=== PATIENT | female | born 1985 | race Caucasian/White ===

== ENCOUNTER 2016-10-30 02:00 | Inpatient (IN) | payer OTHER ==
[2016-10-30] MEDS ORDERED: SODIUM CHLORIDE 0.9% 1,000 ML IV STA (02:18)
[2016-10-30] MEDS ORDERED: PROMETHAZINE INJ 25 MG/ML 1 ML VIAL IM STA ×2 (02:33→03:27)
--- NOTE | 2016-10-30 03:02 | XR ---
EXAM: XR Chest, 1 View CLINICAL HISTORY: Reason: overdose, vomiting TECHNIQUE: Frontal view of the chest. COMPARISON: None FINDINGS: Lungs/pleura: Low lung volumes with bibasilar atelectasis. No focal consolidation. No pleural effusion or pneumothorax. Heart/mediastinum: Normal accounting for low lung volumes. Soft tissues: Unremarkable. Bones: No acute fracture. IMPRESSION: Low lung volumes with bibasilar atelectasis. No acute disease.
[2016-10-30 03:59] LABS: ALT 29 U/L (9-52); AST 29 U/L (14-36); Acetaminophen <10.0 ug/mL; Alcohol <10 mg/dL; Alkaline Phosphatase 86 U/L (38-126); Anion Gap 18 mmol/L; Blood Urea Nitrogen 9 mg/dL (7-17); Calcium 9.7 mg/dL (8.4-10.2); Carbon Dioxide 17 mmol/L (22-30); Chloride 109 mmol/L (98-107); Glucose 91 mg/dL (74-99); Non-African American GFR(MDRD) 58 (>60 ml/min/1.73 sqM); Potassium 3.2 mmol/L (3.5-5.1); Salicylate <1.0 mg/dL; Sodium 144 mmol/L (137-145); Total Bilirubin 0.2 mg/dL (0.2-1.3); Total Protein 7.1 g/dL (6.3-8.2)
[2016-10-30] MEDS ORDERED: SODIUM CHLORIDE 0.9% 2,000 ML IV ONE (04:10)
--- NOTE | 2016-10-30 04:12 | ED ---
Overdose HPI - General Chief Complaint: Overdose Stated Complaint: Overdose Time Seen by Provider: 10/30/16 02:06 Source: EMS Mode of arrival: EMS - History of Present Illness Initial Comments: This patient is a 30-year-old woman brought by EMS to be evaluated for overdose. The patient's family called EMS. She had reportedly taken an overdose with an unknown amount of Cymbalta and an unknown amount of Wellbutrin. The patient reportedly had a seizure at home. The patient was initially responding only yes or no. She did appear postictal and she acknowledged the overdose. The patient's mental status did subsequent only clear. She was denying complaints, other than nausea and she did have some vomiting. His dyspnea, cough, chest pain, abdominal pain, headache. MD Complaint: intentional overdose Onset/Timin -: hour(s) Intent: suicide attempt - Related Data Home Medications Medication Instructions Recorded Confirmed ALPRAZolam [Xanax] 0.25 mg PO TID PRN 10/30/16 10/31/16 DULoxetine HCL [Cymbalta] 60 mg PO DAILY 10/30/16 10/31/16 Dextroamphetamine/Amphetamine 20 mg PO BID 10/30/16 10/31/16 [Adderall] Ergocalciferol [Vitamin D2] 50,000 unit PO MO 10/30/16 10/31/16 buPROPion SR [Wellbutrin SR] 150 mg PO BID 10/30/16 10/31/16 Allergies Allergy/AdvReac Type Severity Reaction Status Date / Time sulfamethoxazole Allergy Intermediate Rash/Hives Verified 10/31/16 18:45 [From Septra] trimethoprim [From Septra] Allergy Intermediate Rash/Hives Verified 10/31/16 18: 45 Review of Systems ROS Statement: Those systems with pertinent positive or pertinent negative responses have been documented in the HPI. ROS Other: All systems not noted in ROS Statement are negative. Limitations: ROS unobtainable due to patients medical condition (Altered mental status) Respiratory: Denies: dyspnea Cardiovascular: Denies: chest pain Gastrointestinal: Reports: vomiting. Denies: abdominal pain Neurological: Denies: headache Past Medical History Additional Past Medical History / Comment(s): chronic ear problems History of Any Multi-Drug Resistant Organisms: None Reported Past Surgical History: Section, Ear Surgery Past Psychological History: No Psychological Hx Reported Smoking Status: Current every day smoker Past Alcohol Use History: None Reported Past Drug Use History: None Reported - Past Family History Father Family Medical History: Diabetes Mellitus, Hypertension Additional Family Medical History / Comment(s): OCD. Mother Additional Family Medical History / Comment(s): Depression. General Exam General appearance: appears intoxicated, obese Head exam: Present: atraumatic, normocephalic Eye exam: Present: normal appearance. Absent: scleral icterus, conjunctival injection ENT exam: Present: normal oropharynx Neck exam: Present: normal inspection, full ROM Respiratory exam: Present: rhonchi. Absent: respiratory distress, wheezes, rales, stridor Cardiovascular Exam: Present: normal rhythm, tachycardia, normal heart sounds. Absent: systolic murmur, diastolic murmur, rubs, gallop GI/Abdominal exam: Present: soft. Absent: distended, tenderness, guarding, rebound, mass Extremities exam: Present: normal inspection, normal capillary refill. Absent: pedal edema, calf tenderness Back exam: Present: normal inspection. Absent: CVA tenderness (R), CVA tenderness (L) Neurological exam: Present: alert, altered, CN II-XII intact. Absent: oriented X3, motor sensory deficit Skin exam: Present: warm, dry, intact, normal color. Absent: rash, cyanosis, diaphoretic, erythema, petechiae, pallor, mottled Course Vital Signs 10/30/16 10/30/16 10/30/16 02:42 03:00 04:17 Temperature 98.2 F Pulse Rate 113 H 108 H 101 H Respiratory 19 18 18 Rate Blood Pressure 127/69 134/58 164/70 O2 Sat by Pulse 98 97 98 Oximetry 10/30/16 07:06 Temperature 98.0 F Pulse Rate 103 H Respiratory 18 Rate Blood Pressure 133/63 O2 Sat by Pulse 98 Oximetry - Reevaluation(s) Reevaluation #1: 10/30/16 04:19 The case has been discussed with poison control. Their recommendations for treatment incorporated. Family did have questions regarding gastric lavage and I explained that given the risks and benefits at this point it does not seem indicated. The patient has had no EKG changes. She is not evidencing mental status change at this point. She did have one seizure but it appears to have been self-limited and she is returned to baseline. At this point the treatment appears to be mainly supportive/observational and patient be admitted to ICU with psychiatry consultation. Medical Decision Making - Medical Decision Making This patient is a 30-year-old woman presenting to the emergency department after she reportedly had taken an overdose of Cymbalta and Wellbutrin, unknown amounts of each. She then was reported to have had a seizure prompting EMS to be called. The patient did admit to attempting self-harm. Case discussed with admitting physician Dr. Adams. Case discussed with consulting physician Dr. Boyd. Case discussed with poison control and their recommendations incorporated. The patient's repeat EKG does not show any length any of the intervals. There is again sinus tachycardia with a rate has improved to 108 bpm. TN interval is 148 ms, QRS duration 72 ms, QT see 469 ms. - Lab Data Result diagrams: 10/30/16 02:54 10/30/16 02:20 Lab Results 10/30/16 10/30/16 10/30/16 Range/Units 02:20 02:20 02:20 WBC (3.8-10.6) k/uL RBC (3.80-5.40) m/uL Hgb (11.4-16.0) gm/dL Hct (34.0-46.0) % MCV (80.0-100.0) fL MCH (25.0-35.0) pg MCHC (31.0-37.0) g/dL RDW (11.5-15.5) % Plt Count (150-450) k/uL Neutrophils % % Lymphocytes % % Monocytes % % Eosinophils % % Basophils % % Neutrophils # (1.3-7.7) k/uL Lymphocytes # (1.0-4.8) k/uL Monocytes # (0-1.0) k/uL Eosinophils # (0-0.7) k/uL Basophils # (0-0.2) k/uL Sodium 144 (137-145) mmol/L Potassium 3.2 L (3.5-5.1) mmol/L Chloride 109 H (98-107) mmol/L Carbon Dioxide 17 L (22-30) mmol/L Anion Gap 18 mmol/L BUN 9 (7-17) mg/dL Creatinine 1.10 H (0.52-1.04) mg/dL Est GFR (MDRD) Af Amer >60 (>60 ml/min/1.73 sqM) Est GFR (MDRD) Non-Af 58 (>60 ml/min/1.73 sqM) Glucose 91 (74-99) mg/dL Plasma Lactic Acid Kevin (0.7-2.0) mmol/L Calcium 9.7 (8.4-10.2) mg/dL Magnesium 2.3 (1.6-2.3) mg/dL Total Bilirubin 0.2 (0.2-1.3) mg/dL AST 29 (14-36) U/L ALT 29 (9-52) U/L Alkaline Phosphatase 86 (38-126) U/L Troponin I <0.012 (0.000-0.034) ng/mL Total Protein 7.1 (6.3-8.2) g/dL Albumin 4.4 (3.5-5.0) g/dL Urine HCG, Qual (Not Detectd) Salicylates <1.0 mg/dL Urine Opiates Screen (NotDetected) Ur Oxycodone Screen (NotDetected) Urine Methadone Screen (NotDetected) Ur Propoxyphene Screen (NotDetected) Acetaminophen <10.0 ug/mL Ur Barbiturates Screen (NotDetected) U Tricyclic Antidepress (NotDetected) Ur Phencyclidine Scrn (NotDetected) Ur Amphetamines Screen (NotDetected) U Methamphetamines Scrn (NotDetected) U Benzodiazepines Scrn (NotDetected) Urine Cocaine Screen (NotDetected) U Marijuana (THC) Screen (NotDetected) Serum Alcohol <10 mg/dL 10/30/16 10/30/16 10/30/16 Range/Units 02:54 02:54 03:13 WBC 22.3 H (3.8-10.6) k/uL RBC 4.61 (3.80-5.40) m/uL Hgb 12.0 (11.4-16.0) gm/dL Hct 37.4 (34.0-46.0) % MCV 81.0 (80.0-100.0) fL MCH 26.1 (25.0-35.0) pg MCHC 32.2 (31.0-37.0) g/dL RDW 14.1 (11.5-15.5) % Plt Count 370 (150-450) k/uL Neutrophils % 89 % Lymphocytes % 6 % Monocytes % 4 % Eosinophils % 1 % Basophils % 0 % Neutrophils # 19.7 H (1.3-7.7) k/uL Lymphocytes # 1.3 (1.0-4.8) k/uL Monocytes # 1.0 (0-1.0) k/uL Eosinophils # 0.1 (0-0.7) k/uL Basophils # 0.1 (0-0.2) k/uL Sodium (137-145) mmol/L Potassium (3.5-5.1) mmol/L Chloride (98-107) mmol/L Carbon Dioxide (22-30) mmol/L Anion Gap mmol/L BUN (7-17) mg/dL Creatinine (0.52-1.04) mg/dL Est GFR (MDRD) Af Amer (>60 ml/min/1.73 sqM) Est GFR (MDRD) Non-Af (>60 ml/min/1.73 sqM) Glucose (74-99) mg/dL Plasma Lactic Acid Kevin 4.4 H* (0.7-2.0) mmol/L Calcium (8.4-10.2) mg/dL Magnesium (1.6-2.3) mg/dL Total Bilirubin (0.2-1.3) mg/dL AST (14-36) U/L ALT (9-52) U/L Alkaline Phosphatase (38-126) U/L Troponin I (0.000-0.034) ng/mL Total Protein (6.3-8.2) g/dL Albumin (3.5-5.0) g/dL Urine HCG, Qual (Not Detectd) Salicylates mg/dL Urine Opiates Screen Not Detected (NotDetected) Ur Oxycodone Screen Not Detected (NotDetected) Urine Methadone Screen Not Detected (NotDetected) Ur Propoxyphene Screen Not Detected (NotDetected) Acetaminophen ug/mL Ur Barbiturates Screen Not Detected (NotDetected) U Tricyclic Antidepress Not Detected (NotDetected) Ur Phencyclidine Scrn Not Detected (NotDetected) Ur Amphetamines Screen Not Detected (NotDetected) U Methamphetamines Scrn Detected H (NotDetected) U Benzodiazepines Scrn Not Detected (NotDetected) Urine Cocaine Screen Not Detected (NotDetected) U Marijuana (THC) Screen Detected H (NotDetected) Serum Alcohol mg/dL 10/30/16 Range/Units 03:13 WBC (3.8-10.6) k/uL RBC (3.80-5.40) m/uL Hgb (11.4-16.0) gm/dL Hct (34.0-46.0) % MCV (80.0-100.0) fL MCH (25.0-35.0) pg MCHC (31.0-37.0) g/dL RDW (11.5-15.5) % Plt Count (150-450) k/uL Neutrophils % % Lymphocytes % % Monocytes % % Eosinophils % % Basophils % % Neutrophils # (1.3-7.7) k/uL Lymphocytes # (1.0-4.8) k/uL Monocytes # (0-1.0) k/uL Eosinophils # (0-0.7) k/uL Basophils # (0-0.2) k/uL Sodium (137-145) mmol/L Potassium (3.5-5.1) mmol/L Chloride (98-107) mmol/L Carbon Dioxide (22-30) mmol/L Anion Gap mmol/L BUN (7-17) mg/dL Creatinine (0.52-1.04) mg/dL Est GFR (MDRD) Af Amer (>60 ml/min/1.73 sqM) Est GFR (MDRD) Non-Af (>60 ml/min/1.73 sqM) Glucose (74-99) mg/dL Plasma Lactic Acid Kevin (0.7-2.0) mmol/L Calcium (8.4-10.2) mg/dL Magnesium (1.6-2.3) mg/dL Total Bilirubin (0.2-1.3) mg/dL AST (14-36) U/L ALT (9-52) U/L Alkaline Phosphatase (38-126) U/L Troponin I (0.000-0.034) ng/mL Total Protein (6.3-8.2) g/dL Albumin (3.5-5.0) g/dL Urine HCG, Qual Not Detected (Not Detectd) Salicylates mg/dL Urine Opiates Screen (NotDetected) Ur Oxycodone Screen (NotDetected) Urine Methadone Screen (NotDetected) Ur Propoxyphene Screen (NotDetected) Acetaminophen ug/mL Ur Barbiturates Screen (NotDetected) U Tricyclic Antidepress (NotDetected) Ur Phencyclidine Scrn (NotDetected) Ur Amphetamines Screen (NotDetected) U Methamphetamines Scrn (NotDetected) U Benzodiazepines Scrn (NotDetected) Urine Cocaine Screen (NotDetected) U Marijuana (THC) Screen (NotDetected) Serum Alcohol mg/dL - EKG Data -: EKG Interpreted by Me EKG shows normal: sinus rhythm, axis (Normal), intervals (Normal), QRS complexes (Normal), ST-T waves (Normal) Rate: tachycardia (Rate 1:30 bpm) Interpretation: other (There are Q waves in V2 consistent with possible septal infarct.) Critical Care Time Critical Care Time: Yes (40 minutes) Disposition Clinical Impression: Overdose Disposition: ADMITTED IP TO THIS [facility] Condition: Serious
[2016-10-30 04:27] LABS: Basophils # (A) 0.1 k/uL (0-0.2); Basophils % (A) 0 %; CH 25.9; CHCM 32.1; Eosinophils # (A) 0.1 k/uL (0-0.7); Eosinophils % (A) 1 %; HCT 37.4 % (34.0-46.0); HDW 2.57; Luc # (Auto) 0.12; Luc % (Auto) 1; Lymphocytes # (A) 1.3 k/uL (1.0-4.8); Lymphocytes % (A) 6 %; MCH 26.1 pg (25.0-35.0); MCHC 32.2 g/dL (31.0-37.0); Mean Platelet Volume 8.6; Monocytes % (A) 4 %; Neutrophils # (A) 19.7 k/uL (1.3-7.7); Neutrophils % (A) 89 %; RBC 4.61 m/uL (3.80-5.40); RDW 14.1 % (11.5-15.5); WBC 22.3 k/uL (3.8-10.6); WBC (Perox) 23.03
[2016-10-30 05:13] VITALS: RESP 18
[2016-10-30] MEDS ORDERED: LORazepam 2 MG/ML SYRINGE IV STA (05:45)
[2016-10-30] MEDS ORDERED: NALOXONE 0.4 MG/ML 1 ML VIAL IV PRN (06:38)
[2016-10-30] MEDS ORDERED: SODIUM CHLORIDE 0.9% 1,000 ML IV SCH (06:45)
[2016-10-30 09:22] VITALS: BMI 40.6
[2016-10-30] MEDS ORDERED: ONDANSETRON 4 MG/2 ML VIAL IVP PRN (09:28)
[2016-10-30] MEDS ORDERED: Potassium Replacement Protocol 1 EACH MISC MISCELLANE PRN (09:28)
[2016-10-30] MEDS: POTASSIUM CHLORIDE ER 20 MEQ TAB.ER PO SCH ×2 (10:43→11:33)
[2016-10-30 11:32] VITALS: BP 110/51; PULSE 86; TEMP 97.2
[2016-10-30] MEDS ORDERED: NICOTINE 21MG/24HR PATCH TRANSDERM SCH (13:30)
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
--- NOTE | 2016-10-30 16:57 | CONS ---
DATE OF CONSULTATION: REASON FOR CONSULTATION: Overdose. This is a 30-year-old female who was brought in by EMS for overdose. It was an intentional overdose as a suicide attempt. She apparently took an unknown amount of Cymbalta and also Wellbutrin. She apparently had a seizure at home. The patient was initially responding only yes or no. She was somewhat postictal when she first arrived in the emergency department. Subsequently, she came around very nicely. She had a couple of EKGs, which did not show any prolongation of the QRS complex or QT prolongation. The patient otherwise is doing reasonably well. She did have some nausea and did have some vomiting. No chest pain or chest discomfort. No fever, no chills. No other complaints for that matter. Overall, the patient seemed to be doing reasonably well. HER ALLERGIES INCLUDE TRIMETHOPRIM AND SULFAMETHOXAZOLE. Her home medications include: 1. Wellbutrin. 2. Vitamin C. 3. Adderall. 4. Cymbalta. 5. Xanax. Her past medical history is apparently positive for depression, anxiety, and attention deficit hyperactivity disorder. She apparently has also had previous , ear surgery, chronic ear problems. SOCIAL HISTORY: Positive for current every day smoker. Denies alcohol use. Denies illicit drug use. She was not able to admit to me whether or not this was her first attempt or she has had multiple previous attempts. The patient is otherwise doing relatively well; feeling well. REVIEW OF SYSTEMS: CONSTITUTIONAL: Negative. NEUROLOGICAL: Negative. HEENT: Negative. CARDIOVASCULAR: Negative. PULMONARY: Negative. GI/: Negative. Rheumatological/immunologic: Negative. ENDOCRINOLOGIC: Negative. The nausea and vomiting that she had initially has passed. She did have a seizure but has not had another one. CURRENT VITAL SIGNS: Temperature 97.2, heart rate 86, respiratory rate 18, blood pressure 110/51, mean 70, room-air saturation 98%. Appears in no acute distress, looks well. Oriented x3. There was a sitter in the room and a family member in the room. HEENT examination is grossly unremarkable. Mucous membranes are moist. Neck is supple. Full range of motion. No adenopathy. Neck veins are flat. Cardiovascular examination reveals regular rhythm and rate. S1, S2 normal. No murmur. No S3, S4. Lungs are clear. Breath sounds equal. ABDOMEN: Soft. Bowel sounds are heard. EXTREMITIES: Intact. No cyanosis, clubbing, or edema. Skin without rash. NEUROLOGICAL: Examination is nonfocal. Lab data is reviewed. White count 22.3, hemoglobin 12, hematocrit 37.4, platelet count 370,000. Sodium 144, potassium 3.2, chloride 109, CO2 of 17, anion gap initially was 18, BUN and creatinine were 9 and 1.10. Initial lactic acid was 4.4. Then it came down to 1.6. Urine hCG negative. Her drug screen was positive for methamphetamines and marijuana. Alcohol less than 10. Tylenol less than 10, salicylates less than one. Troponins normal. A chest x-ray showed some basilar atelectasis without acute disease. ASSESSMENT: 1. Status post drug overdose as a suicide attempt ingesting both Cymbalta and Wellbutrin. 2. History of attention deficit hyperactivity disorder. 3. History of anxiety. 4. History of depression. 5. History of chronic ear problems. PLAN: The patient is doing relatively well. We will probably not see the patient unless if she develops an issue or problem. She seemed to be doing relatively well. Psych is apparently going to see the patient, but has not as yet. No additional recommendations are made. Cardiac situation has been stable. EKG showed no evidence of QRS prolongation.
--- NOTE | 2016-10-30 20:05 | HP ---
CHIEF COMPLAINT: Overdose. HISTORY OF PRESENT ILLNESS: The first known admission for this 30-year-old white female. She is going through a divorce and has had some problems with depression and became depressed and despondent and decided to kill herself. She ingested Wellbutrin and Cymbalta. It was reported that she might have had a seizure at home. She has no history of seizures. She came to emergency room awake and alert and was admitted for observation and suicide precautions. REVIEW OF SYSTEMS: She has had no headaches, neurologic problems, change in vision or hearing, chest pain, cough, hemoptysis, heart disease, hypertension, abdominal pain, nausea, vomiting, hematemesis, melena, hematochezia, jaundice, hematuria, frequency, urgency, arthralgias, diabetes, etc. Past medical history, family history and personal and social histories reveal SHE IS ALLERGIC TO SULFA and she has been on: 1. Vicodin 5 mg once a day p.r.n. 2. Vitamin D. 3. Prilosec. 4. Cymbalta and 5. Xanax. She does smoke. She denies the use of other drugs. PHYSICAL EXAMINATION: VITAL SIGNS: Blood pressure 100/76, pulse of 80, respirations 16. She is afebrile. GENERAL: She appeared to be overweight and in no acute distress. Skin color is normal. Skin is warm and dry. Lymph nodes were not enlarged. Head, ears, eyes, mouth, and throat were normal. Neck veins were not distended. Thyroid is not enlarged. Chest is clear. Cardiac was normal. ABDOMEN: Soft and nontender. Extremities were normal. She was slightly tremulous. She was admitted to the hospital with diagnoses: 1. Overdose of Wellbutrin and Cymbalta. 2. Possible seizure possibly related to Wellbutrin. 3. Major depression. PLAN: 1. Bed rest. 2. IV fluids. 3. Suicide precautions. 4. Psych consult.
--- NOTE | 2016-11-03 07:39 | DS ---
DATE OF ADMISSION: 10/30/2016 DATE OF DISCHARGE: 10/30/2016 CHIEF COMPLAINT: Depression and overdose of Wellbutrin and Cymbalta with possible seizure. History of present illness and physical examination: Details of this lady's history and physical can be found in the initial work-up. LABORATORY STUDIES: While she was in the hospital, she had laboratory studies, the details of which can be found in the laboratory section of her chart. COURSE IN THE HOSPITAL: After admission, she was placed on bed rest, started on intravenous fluids and suicide precautions and seen by Psychiatry. They felt that she was not suicidal and did not need to go to the psych floor. I was not in agreement with this assessment. The patient then decided she wanted to sign herself out AGAINST MEDICAL ADVICE, which she did. FINAL DIAGNOSES: 1. Major depression. 2. Suicide attempt with drug overdose. OPERATIONS: None. CONSULTATION: Psychiatry.
== END 2016-10-30 14:22 | disposition left against medical advice (07) | DRG 918 ==
LOC: EC 02:00 → 6SEL 06:39
PROVIDERS: ADMIT Family Medicine; ATTEND Family Medicine
DX: T43.212A Poisoning by selective serotonin and norepinephrine reuptake inhibitors, intentional self-harm, initial encounter (principal); Z68.41 Body mass index [BMI] 40.0-44.9, adult; G40.89 Other seizures; T43.292A Poisoning by other antidepressants, intentional self-harm, initial encounter; F32.9 Major depressive disorder, single episode, unspecified; E66.9 Obesity, unspecified; F41.9 Anxiety disorder, unspecified; F90.9 Attention-deficit hyperactivity disorder, unspecified type; R11.2 Nausea with vomiting, unspecified; R00.0 Tachycardia, unspecified; F17.200 Nicotine dependence, unspecified, uncomplicated; Z53.21 Procedure and treatment not carried out due to patient leaving prior to being seen by health care provider; Z88.2 Allergy status to sulfonamides; Z62.810 Personal history of physical and sexual abuse in childhood; Z91.410 Personal history of adult physical and sexual abuse; Z86.69 Personal history of other diseases of the nervous system and sense organs; Z81.8 Family history of other mental and behavioral disorders; Z82.49 Family history of ischemic heart disease and other diseases of the circulatory system; Z83.3 Family history of diabetes mellitus; Z91.5 Personal history of self-harm; Z79.891 Long term (current) use of opiate analgesic; Z81.1 Family history of alcohol abuse and dependence; Z79.899 Other long term (current) drug therapy; Z71.3 Dietary counseling and surveillance; Z63.5 Disruption of family by separation and divorce; Y92.9 Unspecified place or not applicable
CPT/HCPCS: 36415; 71010; 80053; 80306; 80320; 81025; 83520; 83605; 83735; 84484; 85025; 93005; 96361; 96374; 99291

== ENCOUNTER 2016-10-31 18:37 | Inpatient (IN) | payer OTHER ==
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
[2016-11-01] MEDS ORDERED: MAG HYDROX/AL HYDROX/SIMETH 30 ML CUP PO PRN (01:57)
[2016-11-01] MEDS ORDERED: MAGNESIUM HYDROXIDE 2,400 MG/10 ML CUP PO PRN (01:57)
[2016-11-01] MEDS ORDERED: ZIPRASIDONE 20 MG VIAL IM PRN (01:57)
[2016-11-01 08:08] LABS: Basophils % (A) 1 %; CH 25.6; CHCM 30.8; Eosinophils # (A) 0.3 k/uL (0-0.7); Eosinophils % (A) 4 %; HCT 35.3 % (34.0-46.0); HDW 2.56; Hypochromasia Moderate; Luc # (Auto) 0.11; Luc % (Auto) 2; Lymphocytes # (A) 1.8 k/uL (1.0-4.8); Lymphocytes % (A) 29 %; MCH 26.1 pg (25.0-35.0); MCHC 31.2 g/dL (31.0-37.0); MCV 83.5 fL (80.0-100.0); Mean Platelet Volume 7.9; Monocytes # (A) 0.3 k/uL (0-1.0); Monocytes % (A) 5 %; Neutrophils # (A) 3.7 k/uL (1.3-7.7); Neutrophils % (A) 59 %; RBC 4.22 m/uL (3.80-5.40); RDW 14.3 % (11.5-15.5); WBC 6.1 k/uL (3.8-10.6); WBC (Perox) 6.43
[2016-11-01 08:34] LABS: ALT 29 U/L (9-52); AST 26 U/L (14-36); Alkaline Phosphatase 68 U/L (38-126); Anion Gap 7 mmol/L; Blood Urea Nitrogen 7 mg/dL (7-17); Carbon Dioxide 27 mmol/L (22-30); Chloride 112 mmol/L (98-107); Glucose 93 mg/dL (74-99); Non-African American GFR(MDRD) >60 (>60 ml/min/1.73 sqM); Potassium 3.8 mmol/L (3.5-5.1); Sodium 146 mmol/L (137-145); Total Bilirubin 0.5 mg/dL (0.2-1.3); Total Protein 6.2 g/dL (6.3-8.2)
[2016-11-01] MEDS ORDERED: DULoxetine HCL 60 MG CAPSULE.DR PO SCH (09:00)
[2016-11-01] MEDS ORDERED: buPROPion SR 150 MG TABLET.ER PO SCH (09:00)
[2016-11-01] MEDS: NICOTINE 21MG/24HR PATCH TRANSDERM SCH (09:23)
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
[2016-11-01] MEDS ORDERED: DULoxetine HCL 30 MG CAPSULE.DR PO SCH (21:00)
[2016-11-01] MEDS ORDERED: LITHIUM CARBONATE 150 MG CAP PO SCH (21:00)
[2016-11-01] MEDS: hydrOXYzine PAMOATE 25 MG CAP PO PRN (21:08)
[2016-11-02] MEDS ORDERED: DULoxetine HCL 30 MG CAPSULE.DR PO SCH (09:00)
--- NOTE | 2016-11-02 09:22 | P.PN ---
Progress Note - Text INTERVERAL HISTORY: 30-year-old female admitted for suicidal ideation. Patient in the midst of a tumultuous separation/divorce from . She had an interaction with him the night of her admission and made statements that she wished she had completed the suicide attempt that she had 2 days previous. Patient reports that she tolerated the initial dose of lithium last night. She has not yet had the reduced dose of Cymbalta today. We discussed cognitive behavioral therapy as a way to practice dealing with her , and the overwhelming emotions that she has with him. Talked about practicing a behavior to help her not go to the point of feeling suicidal or wanting to manipulate him with the suicidal statements. She agreed that she would try to pull an image up of her babies when she is feeling those overwhelming feelings with him. Denies suicidal ideation MENTAL STATUS EXAM:Patient alert and oriented 3, good eye contact, well groomed in hospital street clothing. Speech normal volume, rate and production. Coherent, logical and goal directed thought process. No WENDY, no FOI. [No TB/TW/ TI] Denied auditory and visual hallucinations. Denied paranoid ideation, delusions or IOR. Memory intact Cognition average Mood neutral, affect range decreased intensity, congruent with mood. Denies suicidal ideation, denies homicidal ideation. Insight partial; Judgment grossly intact for treatment purposes Suicde attempt Suicidal ideation Depression, uncpecified Marital conflict PLAN: Continue inpatient psychiatric admission for safety purposes, she has demonstrated impulsivity with the first suicide attempt and the recent threats of getting it. right. Suicide precautions 15 minute checks. Increase lithium 300 mg daily at bedtime Monitor withdrawal from Cymbalta, if no problems will reduce to 15 mg tomorrow Patient has accepted deferral, waiting for her date
[2016-11-02] MEDS: NICOTINE 21MG/24HR PATCH TRANSDERM SCH (09:36)
[2016-11-02] MEDS ORDERED: DULoxetine HCL 30 MG CAPSULE.DR PO STA (09:41)
[2016-11-02] MEDS: LITHIUM CARBONATE 300 MG CAP PO SCH (21:11)
[2016-11-02] MEDS: hydrOXYzine PAMOATE 25 MG CAP PO PRN (21:11)
[2016-11-03 06:52] VITALS: RESP 16
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
[2016-11-03] MEDS ORDERED: DULoxetine HCL 30 MG CAPSULE.DR PO SCH (09:00)
[2016-11-03] MEDS ORDERED: DULoxetine HCL 20 MG CAPSULE.DR PO SCH (09:00)
[2016-11-03] MEDS: NICOTINE 21MG/24HR PATCH TRANSDERM SCH (09:13)
[2016-11-03] MEDS: hydrOXYzine PAMOATE 25 MG CAP PO PRN ×2 (12:54→21:47)
[2016-11-03] MEDS ORDERED: WATER FOR INJECTION, STERILE 0 ML IV ONE (18:33)
[2016-11-03] MEDS: LITHIUM CARBONATE 300 MG CAP PO SCH (21:46)
[2016-11-03] MEDS: ACETAMINOPHEN TAB 325 MG TAB PO PRN (21:47)
[2016-11-04 06:35] VITALS: TEMP 98.1
[2016-11-04] MEDS: NICOTINE 21MG/24HR PATCH TRANSDERM SCH (09:25)
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
[2016-11-04] MEDS: FLUoxetine HCL 20 MG CAP PO SCH (10:15)
[2016-11-04] MEDS: hydrOXYzine PAMOATE 25 MG CAP PO PRN ×2 (10:16→20:09)
[2016-11-04] MEDS: ACETAMINOPHEN TAB 325 MG TAB PO PRN ×2 (12:25→20:08)
[2016-11-04] MEDS: LITHIUM CARBONATE 300 MG CAP PO SCH (20:08)
[2016-11-05 06:39] VITALS: BP 130/70; PULSE 73
[2016-11-05] MEDS: ACETAMINOPHEN TAB 325 MG TAB PO PRN (06:53)
[2016-11-05] MEDS: NICOTINE 21MG/24HR PATCH TRANSDERM SCH (08:55)
[2016-11-05] MEDS: FLUoxetine HCL 20 MG CAP PO SCH (08:56)
[2016-11-05] MEDS: hydrOXYzine PAMOATE 25 MG CAP PO PRN (08:56)
--- NOTE | 2016-11-05 12:03 | P.DS ---
Providers Date of admission: 10/31/16 22:34 Expected date of discharge: 11/05/16 Attending physician: Jayne Joya MD Consults: 11/01/16 01:57 Consult Physician Routine Consulting Provider: Chris Adams Consult Reason/Comments: H & P and medical follow up Do you want consulting provider notified?: Yes, Notify in am Primary care physician: Chris Adams Hospital Course: Patient was admitted on 11/01/2016 through the emergency room on a petition from her mother for making threatening statements and behavior. Patient had been evaluated 2 days earlier on a medical floor after having made a suicide attempt with overdosing on Cymbalta and Wellbutrin, and having seizures when evaluated at that time both she and her mother were present and no suicidal ideation at that time. Patient is in the process of and from her and this second episode began when she and her met, which was not to happen but patient was able to get around her sister and met with her who again caused her to feel diminished worthless and angry. She took a knife and said that she would cut her throat or stab herself, she did neither and her called patient's mother and she was brought to the emergency room. Patient maintained throughout that she never intended to kill herself but that she was trying to punish her . She agreed to deferral so that she'll be required to have outpatient care. We started her on lithium primarily for the purported reason of reduction in suicides. Her father and sister are taking Prozac and are doing well so we started that for her Patient had a family meeting with her mother today that went well. She will be going to live with her mother and father as well as her 2 children. Her sister will also moved in to help care for the children when Brunilda is at work and mother is at work. Mother stated that she is taking Brunilda's phone away and she will delete all of the text messages from her since they are trigger. She will also be the buffer between the patient and patient's . Brunilda agreed with this. She denies suicidal ideation. I informed Brunilda that I thought DBT would be therapy she would benefit from, even though she does not meet full criteria for borderline personality disorder , and if [facility] is not able to provide that for her the next best treatment would be CBT focusing on her inability to control her emotions when she is emotionally charged.mage up of her babies when she is feeling those overwhelming feelings with him. MENTAL STATUS EXAM:Patient alert and oriented 3, good eye contact, well groomed in hospital street clothing. Speech normal volume, rate and production. Coherent, logical and goal directed thought process. No WENDY, no FOI. [No TB/TW/ TI] Denied auditory and visual hallucinations. Denied paranoid ideation, delusions or IOR. Memory intact Cognition average Mood euthymic, affect range normal intensity, congruent with mood. Denies suicidal ideation, denies homicidal ideation. Insight partial; Judgment grossly intact for treatment purposes ADMISSION DIAGNOSES: Suicide attempt Depression, unspecified Cluster B traits Marital conflict DISCHARGE DIAGNOSES: Depression unspecified Marital conflict Cluster B traits Suicide attempt PLAN: Discharge today. Continue lithium 300 mg daily at bedtime Prozac 20mg today, D/C Xanax D/C Adderal Pertinent Studies: none Procedures: none Patient Condition at Discharge: Stable Plan - Discharge Summary New Discharge Prescriptions: New FLUoxetine HCL [PROzac] 20 mg PO DAILY #30 cap hydrOXYzine PAMOATE [Vistaril] 25 mg PO Q8HR PRN #30 cap PRN Reason: Agitation Or Acute Anxiety Qulin Carbonate 300 mg PO HS #30 cap Discontinued buPROPion SR [Wellbutrin SR] 150 mg PO BID DULoxetine HCL [Cymbalta] 60 mg PO DAILY Ergocalciferol [Vitamin D2] 50,000 unit PO MO Dextroamphetamine/Amphetamine [Adderall] 20 mg PO BID ALPRAZolam [Xanax] 0.25 mg PO TID PRN PRN Reason: Anxiety Discharge Medication List FLUoxetine HCL [PROzac] 20 mg PO DAILY #30 cap 11/05/16 [Rx] Qulin Carbonate 300 mg PO HS #30 cap 11/05/16 [Rx] hydrOXYzine PAMOATE [Vistaril] 25 mg PO Q8HR PRN #30 cap 11/05/16 [Rx] Follow up Appointment(s)/Referral(s): [facility] [Outside] - 11/10/16 1:30 pm (Intake 11/10/16 at 1:30pm with Jenniffer ) Chris Adams MD [Primary Care Provider] - 1-2 days Discharge Disposition: HOME SELF-CARE
== END 2016-11-05 14:05 | disposition home or self-care (01) | DRG 881 ==
LOC: EC 18:37 → 3MHU 22:34
PROVIDERS: ADMIT Psychiatry & Neurology Addiction Medicine; ATTEND Psychiatry & Neurology Addiction Medicine
DX: F32.9 Major depressive disorder, single episode, unspecified (principal); Z88.2 Allergy status to sulfonamides; Z91.5 Personal history of self-harm; Z81.8 Family history of other mental and behavioral disorders; Z81.1 Family history of alcohol abuse and dependence; Z63.5 Disruption of family by separation and divorce
CPT/HCPCS: 80053; 80306; 81025; 82075; 84443; 85025; 99285

== ENCOUNTER 2017-01-21 23:50 | Emergency (ER) | payer OTHER ==
[2017-01-21] MEDS: MIDAZOLAM (PF) 1 MG/ML 5 ML VIAL IV STA (23:57)
[2017-01-21] MEDS ORDERED: SUCCINYLCHOLINE CHLORIDE VIAL 200 MG/10 ML VIAL IV STA (23:57)
[2017-01-22] MEDS ORDERED: RX INFO: IV CONTRAST WAS GIVEN 1 EACH MISC MISCELLANE PRN (00:01)
[2017-01-22] MEDS ORDERED: SODIUM CHLORIDE 0.9% 1,000 ML IV STA (00:01)
[2017-01-22] MEDS ORDERED: PROPOFOL 1,000 MG/100 ML VIAL IV ONE (00:01)
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
[2017-01-22 00:11] LABS: Basophils # (A) 0.1 k/uL (0-0.2); Basophils % (A) 1 %; CH 25.7; CHCM 31.2; Eosinophils # (A) 0.3 k/uL (0-0.7); Eosinophils % (A) 2 %; HCT 41.8 % (34.0-46.0); HDW 2.87; HGB 12.9 gm/dL (11.4-16.0); Hypochromasia Slight; Luc # (Auto) 0.21; Luc % (Auto) 2; Lymphocytes # (A) 3.2 k/uL (1.0-4.8); Lymphocytes % (A) 25 %; MCH 25.4 pg (25.0-35.0); MCHC 30.9 g/dL (31.0-37.0); MCV 82.4 fL (80.0-100.0); Mean Platelet Volume 7.9; Monocytes # (A) 0.5 k/uL (0-1.0); Monocytes % (A) 4 %; Neutrophils # (A) 8.7 k/uL (1.3-7.7); Neutrophils % (A) 66 %; RBC 5.08 m/uL (3.80-5.40); RDW 15.5 % (11.5-15.5); WBC 13.1 k/uL (3.8-10.6); WBC (Perox) 13.36
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
[2017-01-22 00:39] LABS: ABG Base Excess -5.4 mmol/L; ABG HCO3 20 mmol/L (21-25); ABG PCO2 40 mmHg (35-45); ABG PH 7.32 (7.35-7.45); ABG PO2 254 mmHg (83-108); ABG TCO2 21 mmol/L (19-24)
[2017-01-22 00:40] LABS: INR 0.9 (<1.2); Prothrombin Time 9.7 sec (9.0-12.0)
[2017-01-22 00:41] LABS: Partial Thromboplastin Time 20.8 sec (22.0-30.0)
[2017-01-22 00:44] LABS: ALT 46 U/L (9-52); AST 41 U/L (14-36); Alkaline Phosphatase 80 U/L (38-126); Amylase 67 U/L (30-110); Anion Gap 13 mmol/L; Blood Urea Nitrogen 8 mg/dL (7-17); Calcium 9.3 mg/dL (8.4-10.2); Carbon Dioxide 21 mmol/L (22-30); Chloride 114 mmol/L (98-107); Creatine Kinase 167 U/L (30-135); Glucose 109 mg/dL (74-99); Non-African American GFR(MDRD) >60 (>60 ml/min/1.73 sqM); Potassium 4.5 mmol/L (3.5-5.1); Sodium 148 mmol/L (137-145); Total Bilirubin 0.2 mg/dL (0.2-1.3); Total Protein 7.2 g/dL (6.3-8.2)
--- NOTE | 2017-01-22 00:44 | XR ---
EXAM: XR Pelvis, 1 or 2 Views CLINICAL HISTORY: Reason: trauma TECHNIQUE: Frontal view of the pelvis. COMPARISON: No relevant prior studies available. FINDINGS: Bones/joints: Unremarkable. No acute fracture. No dislocation. Soft tissues: Unremarkable. Other findings: Intrauterine device noted in the central pelvis. IMPRESSION: No acute findings.
[2017-01-22] MEDS: MIDAZOLAM (PF) 1 MG/ML 5 ML VIAL IV STA (00:47)
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
[2017-01-22 00:55] LABS: Appearance,Urine Clear (Clear); Bilirubin,Urine Negative (Negative); Glucose,Urine (UA) Negative (Negative); Ketones,Urine Negative (Negative); Leukocyte Esterase,Urine Negative (Negative); Nitrite,Urine Negative (Negative); PH, Urine 6.5 (5.0-8.0); Particle Count 631; Protein,Urine Negative (Negative); RBC,Urine 2 /hpf (0-5); Specific Gravity,Urine 1.008 (1.001-1.035); UA Billing (MACRO vs. MICRO) MICRO; Urobilinogen,Urine <2.0 mg/dL (<2.0); WBC,Urine 1 /hpf (0-5)
[2017-01-22 00:55] LABS: Creatine Kinase MB 1.1 ng/mL (0.0-2.4); Troponin I <0.012 ng/mL (0.000-0.034)
[2017-01-22 01:00] LABS: Alcohol 258 mg/dL
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
[2017-01-22] MEDS ORDERED: LORazepam 2 MG/ML SYRINGE IV STA (01:40)
[2017-01-23 06:38] LABS: Glucose,Whole Blood 117 mg/dL (75-99)
== END 2017-01-22 01:41 | disposition short-term general hospital (02) ==
LOC: EDBD → EC 23:50 → MERGE 23:50 → EC 01-22 01:41
DX: S09.90XA Unspecified injury of head, initial encounter (principal); S91.111A Laceration without foreign body of right great toe without damage to nail, initial encounter; S00.83XA Contusion of other part of head, initial encounter; R40.2432 Glasgow coma scale score 3-8, at arrival to emergency department; V43.52XA Car driver injured in collision with other type car in traffic accident, initial encounter; Y92.410 Unspecified street and highway as the place of occurrence of the external cause
CPT/HCPCS: 99291; 31500; 96374; 96361; 36415; 36600; 94002; 86900; 86901; 80053; 82150; 82550; 82553; 82805; 83605; 83690; 84484; 85025; 85610; 85730; 86850; 82272; 81001; 81025; 80306; 80320; 71010; 72170; 72125; 70450; 71260; 74177; J0330; J2060; J2250 ×2; Q9967; J2704